=== PATIENT | female | born 1965 | race Caucasian/White ===

== ENCOUNTER → 2017-01-08 | Outpatient (CLI) | payer BC ==
[~2017-01-08] MED LIST: MULTLIQ7 PO
[2017-01-08 18:09] LABS: BASO % 0.5 % (0.0-1.0); EOS # 0.2 K/mm3 (0.0-0.50); EOS % 2.9 % (0.0-3.0); LARGE UNSTAINED CELL # 0.1 K/mm3 (0.0-0.4); LARGE UNSTAINED CELL % 2.3 % (0.0-4.0); LYMPH # 1.9 K/mm3 (1.5-4.5); LYMPH % 30.7 % (24.0-44.0); MEAN CORPUSCULAR HEMOGLOBIN 31.4 pg (27.0-33.0); MEAN CORPUSCULAR HGB CONC 33.7 g/dl (32.0-36.5); MEAN CORPUSCULAR VOLUME 93.2 fl (80.0-96.0); MONO # 0.3 K/mm3 (0.0-0.8); MONO % 5.1 % (0.0-5.0); NEUTROPHILS # 3.4 K/mm3 (1.8-7.7); NEUTROPHILS % 58.5 % (36.0-66.0); PLATELET COUNT, AUTOMATED 318 k/mm3 (150-450); RED CELL DISTRIBUTION WIDTH 12.5 % (11.5-14.5); WHITE BLOOD COUNT 5.8 K/mm3 (4.0-10.0)
[2017-01-08 18:12] LABS: ALBUMIN 4.1 GM/DL (3.2-5.2); ALBUMIN/GLOBULIN RATIO 1.24 (1.00-1.93); ALKALINE PHOSPHATASE 75 U/L (45-117); ALT/SGPT 26 U/L (12-78); ANION GAP 9 MEQ/L (8-16); AST/SGOT 17 U/L (15-37); BILIRUBIN,TOTAL 0.7 MG/DL (0.2-1.0); BLOOD UREA NITROGEN 18 MG/DL (7-18); CALCIUM LEVEL 9.2 MG/DL (8.5-10.1); CARBON DIOXIDE LEVEL 26 MEQ/L (21-32); CHLORIDE LEVEL 108 MEQ/L (98-107); CHOLESTEROL LEVEL 176 MG/DL (<200); CREATININE FOR GFR 0.97 MG/DL (0.55-1.02); FREE T4 1.07 NG/DL (0.76-1.46); GLOMERULAR FILTRATION RATE > 60.0 (>51); GLUCOSE, FASTING 90 MG/DL (70-105); POTASSIUM SERUM 4.1 MEQ/L (3.5-5.1); SODIUM LEVEL 143 MEQ/L (136-145); TOTAL PROTEIN 7.4 GM/DL (6.4-8.2); TRIGLYCERIDES LEVEL 86 MG/DL (<150)
== END ==
LOC: M WUC 10:55
PROVIDERS: ATTEND Nurse Practitioner Family
DX: G47.33 Obstructive sleep apnea (adult) (pediatric) (principal); E66.01 Morbid (severe) obesity due to excess calories; Z13.1 Encounter for screening for diabetes mellitus

== ENCOUNTER 2017-01-12 14:31 | Emergency (ER) | payer BC ==
[~2017-01-12] VITALS: Ht 170.2 cm; Wt 114.3 kg
[2017-01-12 16:00] LABS: BASO % 0.4 % (0.0-1.0); EOS # 0.1 K/mm3 (0.0-0.50); LARGE UNSTAINED CELL # 0.2 K/mm3 (0.0-0.4); LARGE UNSTAINED CELL % 2.5 % (0.0-4.0); LYMPH # 1.9 K/mm3 (1.5-4.5); LYMPH % 24.7 % (24.0-44.0); MEAN CORPUSCULAR HEMOGLOBIN 31.3 pg (27.0-33.0); MEAN CORPUSCULAR HGB CONC 34.3 g/dl (32.0-36.5); MEAN CORPUSCULAR VOLUME 91.3 fl (80.0-96.0); MONO # 0.3 K/mm3 (0.0-0.8); MONO % 4.8 % (0.0-5.0); NEUTROPHILS # 4.6 K/mm3 (1.8-7.7); NEUTROPHILS % 65.5 % (36.0-66.0); PLATELET COUNT, AUTOMATED 291 k/mm3 (150-450); RED CELL DISTRIBUTION WIDTH 12.4 % (11.5-14.5)
--- NOTE | 2017-01-12 16:04 | REP ---
PORTABLE CHEST, SINGLE VIEW: COMPARISON: 06/05/2008 There is no evidence of acute infiltrate. No pleural effusion is seen. The heart is normal in size. The mediastinal silhouette is unremarkable. The visualized osseous structures are intact. IMPRESSION: No acute pulmonary disease. Signed by Mike Jalloh MD 01/14/2017 06:58 P
[2017-01-12 16:22] LABS: ALBUMIN 3.7 GM/DL (3.2-5.2); ALBUMIN/GLOBULIN RATIO 0.93 (1.00-1.93); ALKALINE PHOSPHATASE 78 U/L (45-117); ALT/SGPT 28 U/L (12-78); ANION GAP 7 MEQ/L (8-16); AST/SGOT 27 U/L (15-37); BILIRUBIN,DIRECT < 0.1 MG/DL (0.0-0.2); BILIRUBIN,TOTAL 0.6 MG/DL (0.2-1.0); BLOOD UREA NITROGEN 11 MG/DL (7-18); CALCIUM LEVEL 8.6 MG/DL (8.5-10.1); CARBON DIOXIDE LEVEL 24 MEQ/L (21-32); CHLORIDE LEVEL 108 MEQ/L (98-107); CREATININE FOR GFR 0.91 MG/DL (0.55-1.02); GLOMERULAR FILTRATION RATE > 60.0 (>51); GLUCOSE, FASTING 118 MG/DL (70-105); MAGNESIUM LEVEL 2.3 MG/DL (1.8-2.4); POTASSIUM SERUM 3.8 MEQ/L (3.5-5.1); SODIUM LEVEL 139 MEQ/L (136-145); TOTAL PROTEIN 7.7 GM/DL (6.4-8.2)
[2017-01-12 20:26] VITALS: BP 130/68
--- NOTE | 2017-01-12 20:48 | ECGEPIP ---
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
== END 2017-01-12 21:27 | disposition home or self-care (01) ==
LOC: EDBD 14:31 → M ED 16:06
DX: R00.8 Other abnormalities of heart beat (principal); F41.9 Anxiety disorder, unspecified; E66.9 Obesity, unspecified; G47.33 Obstructive sleep apnea (adult) (pediatric); Z87.891 Personal history of nicotine dependence

== ENCOUNTER 2017-01-19 22:13 | Emergency (ER) | payer BC ==
[~2017-01-19] VITALS: Ht 170.2 cm; Wt 114.3 kg
[2017-01-19] MEDS ORDERED: MULTLIQ7 PO (22:25)
[2017-01-19] MEDS ORDERED: NS 1,000 ML IV ONE (23:30)
[2017-01-19 23:55] LABS: BASO % 0.3 % (0.0-1.0); EOS # 0.2 K/mm3 (0.0-0.50); EOS % 2.4 % (0.0-3.0); LARGE UNSTAINED CELL # 0.2 K/mm3 (0.0-0.4); LARGE UNSTAINED CELL % 2.4 % (0.0-4.0); LYMPH # 2.6 K/mm3 (1.5-4.5); MEAN CORPUSCULAR HEMOGLOBIN 31.8 pg (27.0-33.0); MEAN CORPUSCULAR HGB CONC 34.7 g/dl (32.0-36.5); MEAN CORPUSCULAR VOLUME 91.7 fl (80.0-96.0); MONO # 0.5 K/mm3 (0.0-0.8); MONO % 5.5 % (0.0-5.0); NEUTROPHILS # 5.2 K/mm3 (1.8-7.7); NEUTROPHILS % 61.3 % (36.0-66.0); PLATELET COUNT, AUTOMATED 284 k/mm3 (150-450); RED CELL DISTRIBUTION WIDTH 12.4 % (11.5-14.5); WHITE BLOOD COUNT 8.4 K/mm3 (4.0-10.0)
[2017-01-19] MEDS ORDERED: LORazepam 2 MG/ML VIAL (J2060) IV STA (23:55)
[2017-01-20 00:10] LABS: BLOOD UREA NITROGEN 18 MG/DL (7-18); CARBON DIOXIDE LEVEL 30 MEQ/L (21-32); CREATININE FOR GFR 1.03 MG/DL (0.55-1.02); GLOMERULAR FILTRATION RATE 59.7 (>51); GLUCOSE, FASTING 120 MG/DL (70-105); MAGNESIUM LEVEL 2.1 MG/DL (1.8-2.4)
[2017-01-20 00:30] LABS: ANION GAP 1 MEQ/L (8-16); CHLORIDE LEVEL 110 MEQ/L (98-107); POTASSIUM SERUM 3.6 MEQ/L (3.5-5.1); SODIUM LEVEL 141 MEQ/L (136-145)
[2017-01-20] MEDS ORDERED: ISOVUE-370 76% 100ML VIAL (Q9967) As Ordered ONE (01:16)
--- NOTE | 2017-01-20 01:48 | REP ---
Clinical: Acute chest pain. Shortness of breath and elevated D-dimer levels. Technique: Axial contrast enhanced images from the thoracic inlet to the upper abdomen using 100 ml Isovue 370 intravenous contrast material with coronal and sagittal re-formations. Findings: Satisfactory enhancement of the pulmonary vasculature is achieved and no filling defects are identified to suggest pulmonary embolus. Thoracic aorta is normal caliber without aneurysm or dissection. Heart and pericardium are normal. Bilateral lung rogers are well aerated and clear without acute pulmonary parenchymal consolidation or atelectasis. No nodule or mass lesion. No pleural effusion/reaction. No pneumothorax. No adenopathy. Small hiatal hernia noted at the gastroesophageal junction. Impression: No evidence for pulmonary embolus. No acute pleuroparenchymal or mediastinal process. Small hiatal hernia. Signed by Chidi Chu MD 01/20/2017 01:40 A
--- NOTE | 2017-01-20 02:30 | REPUSA ---
CLINICAL HISTORY: Edema. COMMENTS: Real time sonography with duplex doppler of the extremities bilaterally was performed with attention to the major deep venous structures. Evaluation reveals the common femoral, superficial femoral and popliteal veins bilaterally to be comp letely compressible without intraluminal thrombus. There is normal spontaneous phasic flow and augmen tation in all deep veins. The greater saphenous/common femoral vein junctions are patent bilaterally. IMPRESSION: No evidence of DVT in the lower extremities bilaterally. Thank you for your kind referral of this patient.
[2017-01-20 03:11] VITALS: BP 99/56
--- NOTE | 2017-01-20 07:31 | ECGEPIP ---
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
== END 2017-01-20 03:18 | disposition home or self-care (01) ==
LOC: M ED 23:19
DX: I49.1 Atrial premature depolarization (principal); Z87.891 Personal history of nicotine dependence; Z82.49 Family history of ischemic heart disease and other diseases of the circulatory system
CPT/HCPCS: 71275; 80048; 82550; 82553; 83735; 85025; 85379; 93005; 93041; 93970; 94760; 96361; 96374; 99284; J2060; Q9967

== ENCOUNTER 2017-01-29 06:57 | Observation (INO) | payer BC ==
[~2017-01-29] VITALS: Ht 170.2 cm; Wt 113.2 kg
[2017-01-29] MEDS ORDERED: ASPI81TA85 PO (07:06)
[2017-01-29] MEDS ORDERED: ASPIRIN 81 MG CHEW TABLET PO ONE (07:30)
[2017-01-29 07:44] LABS: BASO % 0.3 % (0.0-1.0); EOS # 0.2 K/mm3 (0.0-0.50); EOS % 2.4 % (0.0-3.0); LARGE UNSTAINED CELL # 0.2 K/mm3 (0.0-0.4); LARGE UNSTAINED CELL % 2.5 % (0.0-4.0); LYMPH # 2.2 K/mm3 (1.5-4.5); LYMPH % 29.4 % (24.0-44.0); MEAN CORPUSCULAR HEMOGLOBIN 31.9 pg (27.0-33.0); MEAN CORPUSCULAR HGB CONC 34.7 g/dl (32.0-36.5); MEAN CORPUSCULAR VOLUME 91.9 fl (80.0-96.0); MONO # 0.4 K/mm3 (0.0-0.8); MONO % 5.4 % (0.0-5.0); NEUTROPHILS # 4.1 K/mm3 (1.8-7.7); PLATELET COUNT, AUTOMATED 285 k/mm3 (150-450); RED CELL DISTRIBUTION WIDTH 12.4 % (11.5-14.5); WHITE BLOOD COUNT 6.9 K/mm3 (4.0-10.0)
[2017-01-29 08:14] LABS: ALBUMIN 3.9 GM/DL (3.2-5.2); ALBUMIN/GLOBULIN RATIO 1.11 (1.00-1.93); ALKALINE PHOSPHATASE 71 U/L (45-117); ALT/SGPT 25 U/L (12-78); ANION GAP 3 MEQ/L (8-16); AST/SGOT 16 U/L (15-37); BILIRUBIN,DIRECT 0.1 MG/DL (0.0-0.2); BILIRUBIN,TOTAL 0.9 MG/DL (0.2-1.0); BLOOD UREA NITROGEN 14 MG/DL (7-18); CALCIUM LEVEL 8.7 MG/DL (8.5-10.1); CARBON DIOXIDE LEVEL 30 MEQ/L (21-32); CHLORIDE LEVEL 105 MEQ/L (98-107); CREATININE FOR GFR 0.98 MG/DL (0.55-1.02); GLOMERULAR FILTRATION RATE > 60.0 (>51); GLUCOSE, FASTING 94 MG/DL (70-105); POTASSIUM SERUM 3.8 MEQ/L (3.5-5.1); SODIUM LEVEL 138 MEQ/L (136-145); TOTAL PROTEIN 7.4 GM/DL (6.4-8.2)
[2017-01-29] MEDS ORDERED: GI COCKTAIL 50ML BTL(HYOSCYAMINE/MAALOX/LIDOCAINE VISCOUS)(1:3:1) PO ONE (08:30)
--- NOTE | 2017-01-29 08:31 | ECGEPIP ---
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
--- NOTE | 2017-01-29 08:49 | REP ---
CHEST, TWO VIEWS: There is no evidence of acute infiltrate. No pleural effusion is seen. The heart is normal in size. The mediastinal silhouette is unremarkable. The visualized osseous structures are intact. There are mild degenerative changes of the spine. IMPRESSION: No acute pulmonary disease. Signed by Mike Jalloh MD 01/29/2017 05:16 P
[2017-01-29 10:42] LABS: MAGNESIUM LEVEL 2.3 MG/DL (1.8-2.4)
--- NOTE | 2017-01-29 11:56 | ECGEPIP ---
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
[2017-01-29] MEDS ORDERED: OMEP40CA2 PO (14:43)
[2017-01-29] MEDS ORDERED: ASPI81TA7 PO (16:12)
[2017-01-29] MEDS ORDERED: ONDANSETRON 4MG/2ML VIAL (J2405) IV PRN (16:15)
[2017-01-29] MEDS ORDERED: NITROGLYCERIN 0.3 MG SUBL TAB SL PRN (16:15)
[2017-01-29] MEDS ORDERED: ACETAMINOPHEN TAB 650MG DOSE (2X325MG) PO PRN (16:15)
[2017-01-29] MEDS ORDERED: GI COCKTAIL 50ML BTL(HYOSCYAMINE/MAALOX/LIDOCAINE VISCOUS)(1:3:1) PO PRN (16:15)
[2017-01-29] MEDS ORDERED: ALPRAZolam 0.5 MG TAB PO PRN (16:15)
--- NOTE | 2017-01-29 16:22 | HPEPDOC ---
General Date of Admission 01/29/17 Primary Care Physician: Esther Conley [facility] Attending Physician: Richard Huertas M.D. Chief Complaint The patient is a 51-year-old female admitted with a reason for visit of Chest Pain. History of Present Illness 51-year-old female with past medical history of morbid obesity, obstructive sleep apnea on CPAP, and anxiety presented to the ER with a chief complaint of chest pain. Of note, the patient has had 3 ER visits, a visit with her primary care physician, and a visit with her english division chair all within the last 2+ weeks since her symptoms began. After reviewing her EKGs, and lab work from here, it does not appear that the patient had any acute ST-T changes or troponin elevation. She denies any history of any cardiac disease, and notes that she had a negative stress test in 2012. At this time, the patient states that she is returning to the ER because she states that she feels intermittent chest pain with associated palpitations. She denies any specific alleviating or aggravating factors. She denies any associated lightheadedness, dizziness, shortness of breath, abdominal pain, or any nausea/vomiting/diarrhea. The patient is scheduled to have an echocardiogram completed on 02/03 and a stress test scheduled for 02/10. However, at this time the patient states that she is still very concerned about the etiology of her chest pain. In the ER, an EKG revealed sinus rhythm with some PVCs. Troponin markers have been within normal limits 2. The patient will be admitted for observation under the [facility] physician group for further evaluation and monitoring on telemetry. Home Medications Scheduled Aspirin (Aspirin) 81 Mg Tab, 81 MG PO DAILY, (Reported) Allergies Coded Allergies: No Known Drug Allergy (Unverified Allergy, Unknown, 11/14/12) Past Medical History Medical History As noted in HPI. Surgical History 1984 GALLBLADDER 2004 ALL FOUR WISDOM TEETH EXTRACTED Family History FATHER: ALIVE 83 YRS, HTN, H/O B-CELL LYMPHOMA MOTHER: ALIVE 81 YRS, LIPIDS, OCD/ANXIETY. MITRAL VALVE REPAIR: 09/2014 SIBLINGS: ALIVE, BROTHER (1) - NO KNOWN MEDICAL PROBLEMS SISTER (1) - HTN SON(S): ALIVE 32 YRS, NO KNOWN MEDICAL PROBLEMS DAUGHTER(S): ALIVE, DAUGHTERS (2) - NO KNOWN MEDICAL PROBLEMS Social History * Smoker: former Smoker Alcohol: Denies Drugs: denies Review of Symptoms Other systems 10 point review of systems negative unless otherwise specified in HPI. Physical Examination General Exam: Positive: Alert, Cooperative, No Acute Distress ENT Exam: Positive: Atraumatic, Mucous membr. moist/pink Neck Exam: Negative: JVD Chest Exam: Positive: Clear to auscultation, Normal air movement, Other ( reproducible chest pain upon extension of arms and palpation of muscles of the left chest wall and shoulder region.) Heart Exam: Positive: Rate Normal, Regular Rhythm, Normal S1, Normal S2 Telemetry: Positive: Sinus, PVCs Abdomen Exam: Positive: Soft, Negative: Tenderness Extremity Exam: Negative: Tenderness, Swelling Psych Exam: Positive: Oriented x 3 Vital Signs Vital Signs Date Time Temp Pulse Resp B/P (MAP) Pulse Ox O2 Delivery O2 Flow Rate FiO2 01/29/17 15:35 74 94 01/29/17 14:54 154/86 (108) 01/29/17 11:30 98.9 16 01/29/17 09:25 Room Air Laboratory Data Labs 24H Laboratory Tests 2 01/29/17 07:30: White Blood Count 6.9, Red Blood Count 4.27, Hemoglobin 13.6, Hematocrit 39.2, Mean Corpuscular Volume 91.9, Mean Corpuscular Hemoglobin 31.9, Mean Corpuscular Hemoglobin Concent 34.7, Red Cell Distribution Width 12.4, Platelet Count 285, Neutrophils (%) (Auto) 60.0, Lymphocytes (%) (Auto) 29.4, Monocytes ( %) (Auto) 5.4H, Eosinophils (%) (Auto) 2.4, Basophils (%) (Auto) 0.3, Neutrophils # (Auto) 4.1, Lymphocytes # (Auto) 2.2, Monocytes # (Auto) 0.4, Eosinophils # (Auto) 0.2, Basophils # (Auto) 0.0, Large Unclassified Cells % 2.5 , Large Unclassified Cells # 0.2, Anion Gap 3L, Glomerular Filtration Rate > 60.0, Calcium Level 8.7, Magnesium Level 2.3, Aspartate Amino Transf (AST/SGOT) 16, Alanine Aminotransferase (ALT/SGPT) 25, Alkaline Phosphatase 71, Total Bilirubin 0.9, Direct Bilirubin 0.1, Total Creatine Kinase 70, Creatine Kinase MB 1.0, Creatine Kinase MB Relative Index 1.42, Troponin I < 0.02, B-Type Natriuretic Peptide 16.3, Total Protein 7.4, Albumin 3.9, Albumin/Globulin Ratio 1.11, Lipase 150 01/29/17 13:26: Total Creatine Kinase 74, Creatine Kinase MB 1.0, Creatine Kinase MB Relative Index 1.35, Troponin I < 0.02 CBC/BMP Laboratory Tests 01/29/17 07:30 Red Blood Count 4.27, Mean Corpuscular Volume 91.9, Mean Corpuscular Hemoglobin 31.9, Mean Corpuscular Hemoglobin Concent 34.7, Red Cell Distribution Width 12.4 , Neutrophils (%) (Auto) 60.0, Lymphocytes (%) (Auto) 29.4, Monocytes (%) (Auto ) 5.4 H, Eosinophils (%) (Auto) 2.4, Basophils (%) (Auto) 0.3, Neutrophils # ( Auto) 4.1, Lymphocytes # (Auto) 2.2, Monocytes # (Auto) 0.4, Eosinophils # (Auto ) 0.2, Basophils # (Auto) 0.0 Plan / VTE VTE Prophylaxis Ordered?: Yes Plan Plan Chest Pain R/O ACS We will admit for observation in PCU EKG with no acute ST-T changes Troponin negative x 2, will serially trend Already given a dose of ASA in ER, will order for SL Nitro prn Will continue to monitor on telemetry Obstructive sleep apnea on CPAP Patient's will bring the patient's CPAP to the hospital for use tonight Anxiety Xanax when necessary Morbid obesity Complicating medical care DVT prophylaxis Lovenox subcutaneously The patient will be admitted under the service of Dr. Huertas. IRLANDA MOREAU MD Jan 29, 2017 16:22
[2017-01-29] MEDS ORDERED: KETOROLAC 30 MG/ML VIAL (J1885) IV ONE (17:00)
[2017-01-29 17:18] VITALS: BP 156/97
--- NOTE | 2017-01-29 19:40 | ECGEPIP ---
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
[2017-01-29 20:00] VITALS: BP 136/89
[2017-01-29 23:52] VITALS: BP 115/63
[2017-01-30 04:00] VITALS: BP 111/58
[2017-01-30 05:32] LABS: MEAN CORPUSCULAR HEMOGLOBIN 31.4 pg (27.0-33.0); MEAN CORPUSCULAR HGB CONC 33.9 g/dl (32.0-36.5); MEAN CORPUSCULAR VOLUME 92.5 fl (80.0-96.0); RED CELL DISTRIBUTION WIDTH 12.5 % (11.5-14.5); WHITE BLOOD COUNT 7.4 K/mm3 (4.0-10.0)
[2017-01-30 06:46] LABS: ANION GAP 6 MEQ/L (8-16); BLOOD UREA NITROGEN 18 MG/DL (7-18); CALCIUM LEVEL 8.6 MG/DL (8.5-10.1); CARBON DIOXIDE LEVEL 27 MEQ/L (21-32); CHLORIDE LEVEL 105 MEQ/L (98-107); CREATININE FOR GFR 0.92 MG/DL (0.55-1.02); GLOMERULAR FILTRATION RATE > 60.0 (>51); GLUCOSE, FASTING 99 MG/DL (70-105); POTASSIUM SERUM 3.9 MEQ/L (3.5-5.1); SODIUM LEVEL 138 MEQ/L (136-145)
[2017-01-30 08:00] VITALS: BP 123/76
[2017-01-30] MEDS ORDERED: ENOXAPARIN 40 MG/0.4 ML SYRINGE (J1650) SC SCH (09:00)
[2017-01-30 12:00] VITALS: BP 164/74
[2017-01-30] MEDS ORDERED: ALPR0.5T3 PO (15:51)
--- NOTE | 2017-01-30 20:56 | IPN ---
DATE: 01/30/2017 SUBJECTIVE: The patient is seen today on progressive care unit (PCU). She was admitted yesterday from what I understand for chest pain and lightheadedness as well as palpitations. She has been experiencing palpitations for the last several weeks which may or may not have been coincidence with taking a nutritional supplement for weight loss. She describes herself in fairly high-stress job, although denies any significant issues with chest pains or palpitations prior to January 12. She has had least one emergency room (ER) visit, least one office visit and has had one cardiology visit. She is scheduled to have an echocardiogram on 02/03 and a stress test on 02/10. She is not having any heartburn or indigestion. She did describe some additional palpitations after she had eaten her breakfast. She is getting some Lovenox right now, some alprazolam as needed, and received a gastrointestinal (GI) cocktail. OBJECTIVE: VITAL SIGNS: On examination her temperature is 97.8, pulse of 65 with occasional skips, blood pressure 123/76, pulse 18 and regular, O2 saturation 95% on room air. GENERAL: She is alert, pleasant, cooperative, not in any distress. HEENT: Her eyes are clear. NECK: Without any masses, tenderness or adenopathy. There are no carotid bruits. LUNGS: Clear. HEART: Has regular rhythm with occasional skip. No murmur, click or gallop. ABDOMEN: Soft, nontender without any masses or organomegaly. Bowel sounds are active. LABORATORY DATA: Labs from today showed a hemoglobin of 12.8, WBC 7400. She has had four sets of cardiac enzymes that have been completely. normal BNP is 16.3. Potassium 3.9, BUN 18, creatinine 0.92, glucose 99. Lipase done yesterday was normal. ASSESSMENT: 1. Chest pain and palpitations. 2. Overweight. 3. Relatively frequent premature ventricular contractions (PVCs). PLAN: Reassured the patient that we have not seen anything ominous with her current situation, that her labs and EKGs are unrevealing. I think it would be reasonable prior to her going home to do an echocardiogram. I think it would be reasonable for her to have a prescription for anxiety. Continue on aspirin. I would not put her on any beta blockers or anything like that at this time. We will review her echocardiogram before sending her home, but she looks so good today and everything has been normal enough that I think that is a reasonable way to go. MILY
--- NOTE | 2017-01-31 07:15 | ECHO ---
DATE OF PROCEDURE: 01/30/2017 DATE OF : 1965 AGE: 51 GENDER: Female HEIGHT: 67 inches WEIGHT: 249 pounds BODY SURFACE AREA: 2.22 meters squared INPATIENT: Progressive care unit (PCU), Room 3228 REFERRING PHYSICIAN: Dr. Huertas INDICATION: Chest pain, PVCs. MEASUREMENTS 2D measurements: RV: 3.9 cm LV: 4.9 cm Septum: 1.1 cm Posterior wall: 1.1 cm Aortic root: 3.1 cm LA: 4.2 cm LVEF: 70%. Doppler measurements AV: 1.5 meters per second LVOT: 0.9 meters per second MV-E: 100, A: 130, EA ratio: 0.8 E prime: 8 A prime: 12 E/E prime ratio: 12.5 PV: 0.9 m/s Pulmonary artery acceleration time: 180 milliseconds IVC: 2.0 cm Normal sinus rhythm with frequent episodes of ventricular bigeminy. Somewhat technically difficult study in light of the patient's body habitus. Two-dimensional, M-mode, pulsed, continuous wave and color flow Doppler study as well as tissue Doppler studies were performed. CONCLUSIONS: Normal left ventricular size, wall thickness and hyperkinetic wall motion. Borderline left atrial enlargement with Doppler sign of an impairment of LV diastolic function but currently normal estimated mean left atrial pressure. Normal right heart chamber sizes and wall motion with normal pulmonary artery acceleration time against pulmonary hypertension. Normal IVC size and collapse against an elevated central venous pressure. Normal appearing valvular structures with mild mitral insufficiency. No apparent intracardiac mass or pericardial effusion.
--- NOTE | 2017-01-31 12:49 | DSES ---
DATE OF ADMISSION: 01/29/2017 DATE OF DISCHARGE: 01/30/2017 DIAGNOSES: 1. Chest pain, not ischemic. 2. Premature ventricular contractions. 3. Mild mitral regurgitation. 4. Obesity. BRIEF HISTORY AND PHYSICAL: This is a 51-year-old woman who started having palpitations about 2-1/2 weeks ago. They had not been responsive to discontinuation of vitamin supplements and reduction in caffeine. She had three ER visits as well as the cardiology and primary care visit. She complained of intermittent chest pain, palpitations and a kind of funny feeling in her head or chest, not specifically any kind of lightheadedness. The only medication that she was taking at home was 81 mg aspirin. Her physical examination showed that she was pleasant, overweight, not in any distress. Her lungs were clear. Heart had a regular rhythm with skips corresponding to premature ventricular contractions. There is no edema. No jugular venous distension. LABORATORY DATA: She had several sets of cardiac enzymes that were negative. Her magnesium was 2.3. Liver functions were normal. BUN was 14 and 18. Creatinine was 0.98 and 0.92. Potassium was 3.9 and 3.8. Lipase was normal at 150. Chest x-ray was clear with no acute pulmonary disease, normal heart size. COURSE IN THE FACILITY: Resident was admitted to progressive care unit (PCU), had cardiac monitoring and had rule out myocardial infarction (RI), enzymes and EKGs done. The EKGs were unchanged. She did have a normal sinus rhythm with premature ventricular contractions (PVCs) that were either bigeminal, less frequent or nonexistent. She has not had any shortness of breath or lightheadedness. When seen the following morning, she was quite comfortable. She had PVCs intermittently. Lungs were clear. Heart had a regular rhythm with the occasional PVCs. Abdomen was soft and nontender. There was no edema. An echocardiogram was done before discharge, which did not have a formal report but was said to show some mild mitral regurgitation. The patient was discharged to her home, felt to be safely ruled out for ischemic cardiac disease as well as cardiomyopathy. She was to stay away from vitamins and supplements. She could have one cup of coffee per day. Continue aspirin 81 mg daily. We did provide her with a prescription for alprazolam 0.5 mg that she could take twice a day as needed for anxiety. We called in a prescription for #10 and no refill for her. I felt it best patient be followed up in the office in about 5 days and that she contact the production sanitizer's office on 02/01/2017 and let them know that she had already had her echocardiogram in the hospital. She is scheduled for a stress test on 02/10/2017. In terms of activity, advised not do any heavy exertion. cc: Dr. Silver MINOR
== END 2017-01-30 17:15 | disposition home or self-care (01) ==
LOC: M ED 07:45 → M ED INP 16:08 → M PCU 17:14
PROVIDERS: ADMIT Internal Medicine; ATTEND Family Medicine
DX: R07.89 Other chest pain (principal); I49.3 Ventricular premature depolarization; I34.0 Nonrheumatic mitral (valve) insufficiency; E66.01 Morbid (severe) obesity due to excess calories; R00.2 Palpitations; F41.9 Anxiety disorder, unspecified; G47.33 Obstructive sleep apnea (adult) (pediatric); Z79.82 Long term (current) use of aspirin; Z87.891 Personal history of nicotine dependence
CPT/HCPCS: 36415; 71020; 80048; 80076; 82550; 82553; 83690; 83735; 83880; 85025; 85027; 93005; 94760; 96372; 96374; 99285; J1650; J1885

== ENCOUNTER → 2017-07-28 | Outpatient (CLI) | payer BC ==
[~2017-07-28] MED LIST changes: +ALPR0.5T3 PO; +ASPI1TAB15 PO; +ASPI81TA85 PO; +OMEP40CA2 PO
[2017-07-28 12:14] LABS: BASO % 0.6 % (0.0-1.0); EOS # 0.1 10^3/uL (0.0-0.50); EOS % 1.7 % (0.0-3.0); IMMATURE GRANULOCYTE % 0.3 % (0-0); LYMPH # 1.8 10^3/uL (1.5-4.5); LYMPH % 27.2 % (24.0-44.0); MEAN CORPUSCULAR HEMOGLOBIN 30.6 pg (27.0-33.0); MEAN CORPUSCULAR HGB CONC 33.4 g/dl (32.0-36.5); MEAN CORPUSCULAR VOLUME 91.7 fl (80.0-96.0); MONO # 0.5 10^3/uL (0.0-0.8); MONO % 6.8 % (0.0-5.0); NEUTROPHILS # 4.2 10^3/uL (1.8-7.7); NEUTROPHILS % 63.4 % (36.0-66.0); PLATELET COUNT, AUTOMATED 306 10^3/uL (150-450); RED CELL DISTRIBUTION WIDTH 12.5 % (11.5-14.5); WHITE BLOOD COUNT 6.6 10^3/uL (4.0-10.0)
[2017-07-28 12:39] LABS: ALBUMIN/GLOBULIN RATIO 1.14 (1.00-1.93); ALKALINE PHOSPHATASE 75 U/L (45-117); ALT/SGPT 27 U/L (12-78); ANION GAP 10 MEQ/L (8-16); AST/SGOT 19 U/L (7-37); BILIRUBIN,TOTAL 0.8 MG/DL (0.2-1.0); BLOOD UREA NITROGEN 16 MG/DL (7-18); CALCIUM LEVEL 8.9 MG/DL (8.5-10.1); CARBON DIOXIDE LEVEL 25 MEQ/L (21-32); CHLORIDE LEVEL 107 MEQ/L (98-107); CHOLESTEROL LEVEL 172 MG/DL (<200); CREATININE FOR GFR 0.89 MG/DL (0.55-1.02); FREE T4 1.07 NG/DL (0.76-1.46); GLOMERULAR FILTRATION RATE > 60.0 (>51); GLUCOSE, FASTING 91 MG/DL (70-105); POTASSIUM SERUM 4.2 MEQ/L (3.5-5.1); SODIUM LEVEL 142 MEQ/L (136-145); TOTAL PROTEIN 7.5 GM/DL (6.4-8.2); TRIGLYCERIDES LEVEL 97 MG/DL (<150)
== END ==
LOC: M WUC 09:35
PROVIDERS: ATTEND Nurse Practitioner Family
DX: G47.33 Obstructive sleep apnea (adult) (pediatric) (principal); E66.01 Morbid (severe) obesity due to excess calories

== ENCOUNTER → 2017-09-30 | Outpatient (CLI) | payer OTHER | LOC: M WHC 10:28 | DX: Z12.31 Encounter for screening mammogram for malignant neoplasm of breast (principal) | CPT/HCPCS: 77067 ==

== ENCOUNTER → 2017-09-30 | Outpatient (REF) | payer OTHER ==
[2017-10-02 14:10] LABS: HPV HYBRID CAPTURE II Negative (Negative)
== END ==
LOC: M SFHCWAGY 11:02
DX: Z11.51 Encounter for screening for human papillomavirus (HPV) (principal)
CPT/HCPCS: G0123

== ENCOUNTER → 2018-07-02 | Outpatient (REF) | payer OTHER | LOC: M SFHCLERA 18:16 | DX: J02.9 Acute pharyngitis, unspecified (principal) ==

== ENCOUNTER → 2018-10-10 | Outpatient (CLI) | payer OTHER ==
--- NOTE | 2018-10-11 08:27 | REPMRS ---
Patient History The patient states she had a clinical breast exam in 10/04 Patient is postmenopausal and has history of skin cancer at age 48. No known family history of cancer. Digital Woman Screen Mammo: October 10, 2018 - Exam #: [id number] Bilateral CC and MLO view(s) were taken. Technologist: Maddie Driscoll, Technologist Prior study comparison: September 30, 2017, digital woman screen mammo performed at [facility] to [facility]. February 14, 2014, digital woman screen mammo performed at [facility] to [facility]. June 24, 2009, bilateral bilat screen digital mammo performed at [facility]. FINDINGS: There are scattered fibroglandular densities. There is a moderate amount of residual fibroglandular tissue which is fairly symmetric. There is no interval development of dominant mass, architectural distortion, or clustered microcalcification typical of malignancy. There has been no change in the appearance of the mammogram from the prior studies. 3-D tomosynthesis shows no additional findings. Assessment: BI-RADS/ACR category 1 mammogram. Negative Mammogram. Recommendation Routine screening mammogram of both breasts in 1 year (for women over age 40). This patient's Lifetime Breast Cancer RIsk is estimated at 8.0 %. This mammogram was interpreted with the aid of an FDA-approved computer-aided dectection system. Electronically Signed By: Antonio Handy MD 10/11/18 0827
== END ==
LOC: M WHC 10:26
PROVIDERS: ATTEND Nurse Practitioner Women's Health
DX: Z12.31 Encounter for screening mammogram for malignant neoplasm of breast (principal)

== ENCOUNTER 2018-12-23 08:10 | Day surgery (SDC) | payer OTHER ==
[~2018-12-23] VITALS: Ht 170.2 cm; Wt 115.7 kg
[~2018-12-23 08:10] MED LIST changes: +LIDOCAINE 2% INJ 100 MG/5 ML SDV (FOR ANES.) As Ordered ONE; +METO1TAB32 PO; +NS 1,000 ML IV ONE
[2018-12-23] MEDS ORDERED: PROPOFOL 200 MG/20 ML VIAL As Ordered ONE ×2 (08:14→09:16)
--- NOTE | 2018-12-23 09:53 | ROOR ---
Patient Name: Octavia Jarvis Procedure Date: 12/23/2018 9:07 AM Date of : 1965 Age: 53 [facility] Gender: Female Note Status: Finalized Procedure: Colonoscopy Indications: Screening for colorectal malignant neoplasm Providers: Donavan Adhikari MD Referring MD: Esther Conley NP Requesting Provider: Medicines: Monitored Anesthesia Care Complications: No immediate complications. Procedure: Pre-Anesthesia Assessment: - Prior to the procedure, a History and Physical was performed, and patient medications and allergies were reviewed. The patient is competent. The risks and benefits of the procedure and the sedation options and risks were discussed with the patient. All questions were answered and informed consent was obtained. Patient identification and proposed procedure were verified by the physician, the nurse and the anesthesiologist in the procedure room. Mental Status Examination: alert and oriented. Airway Examination: normal oropharyngeal airway and neck mobility. Respiratory Examination: clear to auscultation. CV Examination: normal. Prophylactic Antibiotics: The patient does not require prophylactic antibiotics. Prior Anticoagulants: The patient has taken no previous anticoagulant or antiplatelet agents. ASA Grade Assessment: II - A patient with mild systemic disease. After reviewing the risks and benefits, the patient was deemed in satisfactory condition to undergo the procedure. The anesthesia plan was to use monitored anesthesia care (MAC). Immediately prior to administration of medications, the patient was re-assessed for adequacy to receive sedatives. The heart rate, respiratory rate, oxygen saturations, blood pressure, adequacy of pulmonary ventilation, and response to care were monitored throughout the procedure. The physical status of the patient was re-assessed after the procedure. The Colonoscope was introduced through the anus and advanced to the terminal ileum, with identification of the appendiceal orifice and IC valve. The patient tolerated the procedure well. The colonoscopy was performed without difficulty. The quality of the bowel preparation was good. The terminal ileum, ileocecal valve, appendiceal orifice, and rectum were photographed. Scope insertion time was 3 minutes. Scope withdrawal time was 9 minutes. The total duration of the procedure was 12 minutes. Findings: The perianal and digital rectal examinations were normal. The terminal ileum appeared normal. A few small-mouthed diverticula were found in the sigmoid colon. Non-bleeding external and internal hemorrhoids were found during retroflexion. The hemorrhoids were small. No other significant abnormalities were identified in a careful examination of the remainder of the colon. Impression: - The examined portion of the ileum was normal. - Diverticulosis in the sigmoid colon. - Non-bleeding external and internal hemorrhoids. - No specimens collected. Recommendation: - Patient has a contact number available for emergencies. The signs and symptoms of potential delayed complications were discussed with the patient. Return to normal activities tomorrow. Written discharge instructions were provided to the patient. - High fiber diet. - Continue present medications. - Repeat colonoscopy in 10 years for screening purposes. - Return to GI clinic in 10 years. - Return to primary care physician. Donavan Adhikari MD Donavan Adhikari MD 12/23/2018 9:52:56 AM Electronically signed by Donavan Adhikari MD Number of Addenda: 0 Note Initiated On: 12/23/2018 9:07 AM Estimated Blood Loss: Estimated blood loss: none.
[2018-12-23 10:15] VITALS: BP 144/93
== END 2018-12-23 10:20 | disposition home or self-care (01) ==
LOC: M OPP 08:10
PROVIDERS: ATTEND Internal Medicine Gastroenterology
DX: K57.30 Diverticulosis of large intestine without perforation or abscess without bleeding (principal); K64.8 Other hemorrhoids; Z12.11 Encounter for screening for malignant neoplasm of colon

== ENCOUNTER → 2019-06-12 | Outpatient (CLI) | payer OTHER ==
[~2019-06-12] MED LIST changes: -LIDOCAINE 2% INJ 100 MG/5 ML SDV (FOR ANES.) As Ordered ONE; -NS 1,000 ML IV ONE; -OMEP40CA2 PO; +OMEP40CA97 PO
[2019-06-12 12:17] LABS: BASO % 0.6 % (0.0-1.0); EOS # 0.2 10^3/uL (0.0-0.5); EOS % 2.6 % (0.0-3.0); HEMATOCRIT 40.4 % (36.0-47.0); HEMOGLOBIN 13.6 g/dl (12.0-15.5); LYMPH % 29.9 % (24.0-44.0); MEAN CORPUSCULAR HEMOGLOBIN 31.6 pg (27.0-33.0); MEAN CORPUSCULAR HGB CONC 33.7 g/dl (32.0-36.5); MEAN CORPUSCULAR VOLUME 93.7 fl (80.0-96.0); MONO # 0.4 10^3/uL (0.0-0.8); MONO % 6.4 % (0.0-5.0); NEUTROPHILS # 3.9 10^3/uL (1.5-8.5); NEUTROPHILS % 60.2 % (36.0-66.0); PLATELET COUNT, AUTOMATED 278 10^3/uL (150-450); RED BLOOD COUNT 4.31 10^6/uL (4.00-5.40); WHITE BLOOD COUNT 6.5 10^3/uL (4.0-10.0)
[2019-06-12 12:37] LABS: HEMOGLOBIN A1c 5.9 %
[2019-06-12 12:49] LABS: ALBUMIN 3.7 GM/DL (3.2-5.2); ALT/SGPT 30 U/L (12-78); BILIRUBIN,TOTAL 0.8 MG/DL (0.2-1.0); BLOOD UREA NITROGEN 17 MG/DL (7-18); CALCIUM LEVEL 8.9 MG/DL (8.5-10.1); CARBON DIOXIDE LEVEL 25 MEQ/L (21-32); CHLORIDE LEVEL 110 MEQ/L (98-107); CHOLESTEROL LEVEL 173 MG/DL (<200); CHOLESTEROL RISK RATIO 3.203 (<5); CREATININE FOR GFR 0.84 MG/DL (0.55-1.30); GLOMERULAR FILTRATION RATE > 60.0 (>51); GLUCOSE, FASTING 84 MG/DL (70-100); HDL CHOLESTEROL 54 MG/DL (>40); LDL CHOLESTEROL 105 MG/DL (<100); NON-HDL-C 119 MG/DL; POTASSIUM SERUM 4.1 MEQ/L (3.5-5.1); SODIUM LEVEL 140 MEQ/L (136-145); TOTAL PROTEIN 7.4 GM/DL (6.4-8.2); TRIGLYCERIDES LEVEL 69 MG/DL (<150)
== END ==
LOC: M LAB 11:34
PROVIDERS: ATTEND Nurse Practitioner Family
DX: Z13.1 Encounter for screening for diabetes mellitus (principal); E66.01 Morbid (severe) obesity due to excess calories; G47.33 Obstructive sleep apnea (adult) (pediatric); Z79.899 Other long term (current) drug therapy

== ENCOUNTER → 2019-06-12 | Outpatient (CLI) | payer OTHER ==
[2019-06-12 12:56] LABS: CHOLESTEROL RISK RATIO 3.176 (<5)
== END ==
LOC: M LAB 11:38
PROVIDERS: ATTEND Physician Assistant
DX: I49.3 Ventricular premature depolarization (principal); I10 Essential (primary) hypertension

== ENCOUNTER → 2019-10-11 | Outpatient (CLI) | payer OTHER ==
--- NOTE | 2019-10-11 15:08 | REPMRS ---
Patient History The patient states she has not had a clinical breast exam in over a year. No known family history of cancer. Digital Woman Screen Mammo: October 11, 2019 - Exam #: [id number] Bilateral CC and MLO view(s) were taken. Technologist: Lorraine Cabrera, Technologist Prior study comparison: October 10, 2018, bilateral digital woman screen mammo performed at [facility]. September 30, 2017, digital woman screen mammo performed at [facility]. February 14, 2014, digital woman screen mammo performed at [facility]. FINDINGS: There are scattered fibroglandular densities. There has been no change in the appearance of the mammogram from the prior studies. There is a mild amount of scattered fibroglandular density which is fairly symmetric. There is no interval development of dominant mass, architectural distortion, or grouped microcalcification suggestive of malignancy. 3-D tomosynthesis shows no additional findings. Assessment: BI-RADS/ACR category 1 mammogram. Negative Mammogram. Recommendation Routine screening mammogram of both breasts in 1 year (for women over age 40). This patient's Lifetime Breast Cancer Risk is estimated at 7.9 %. This mammogram was interpreted with the aid of an FDA-approved computer-aided dectection system. Electronically Signed By: Antonio Handy MD 10/11/19 [id number]
== END ==
LOC: M WHC 11:37
PROVIDERS: ATTEND Nurse Practitioner Women's Health
DX: Z12.31 Encounter for screening mammogram for malignant neoplasm of breast (principal)

== ENCOUNTER → 2019-10-19 | Outpatient (REF) | payer OTHER | LOC: M SFHCWAGY 13:33 | PROVIDERS: ATTEND Nurse Practitioner Women's Health | DX: Z12.4 Encounter for screening for malignant neoplasm of cervix (principal) ==

== ENCOUNTER → 2019-10-24 | Outpatient (CLI) | payer OTHER ==
--- NOTE | 2019-10-25 08:37 | REP ---
Clinical: Pelvic pain. Technique: Transabdominal pelvic ultrasound followed by transvaginal examination for better evaluation of the endometrium and adnexa with color Doppler evaluation of the ovaries. Findings: Bladder is normal and measures approximately 12.7 x 6.6 x 8.5 cm. Retroverted uterus measures 8.2 x 4 point by 5.0 cm. Endometrial complex measures 4.9 mm thickness. Suggestions for 1.4 x 1.6 x 0.7 cm anterior intramural fibroid identified. The bilateral ovaries are normal in appearance and vascularity without torsion. Right ovary measures 1.6 x 0.9 x 1.3 cm (RI 0.61). Left ovary measures 2.0 x 0.6 x 0.8 cm (RI 0.49). No pelvic fluid or adnexal mass lesion. Impression: 1. Retroverted uterus with possible small anterior intramural fibroid.
== END ==
LOC: M WHC 11:06
PROVIDERS: ATTEND Nurse Practitioner Women's Health
DX: R10.2 Pelvic and perineal pain (principal)

== ENCOUNTER → 2020-05-01 | Outpatient (CLI) | payer OTHER ==
[~2020-05-01] MED LIST changes: +ASPI-546 PO; -ASPI1TAB15 PO; -ASPI81TA85 PO; +ASPI81TA86 PO
--- NOTE | 2020-05-14 16:29 | REP ---
RIGHT HIP SERIES CLINICAL: Pain. TECHNIQUE: AP and frog lateral views of the right hip. COMPARISON: 02/19/2016. FINDINGS: Moderate arthritic changes are again noted, which have mildly increased from prior examination. Findings include increased sclerosis along the acetabulum with marginal spurring, as well as spurring-osteophyte formation along the femoral head. Associated joint space narrowing is noted. No obvious loose bodies identified. No evidence for acute fracture or dislocation. IMPRESSION: Moderate arthritic changes to the right hip mildly increased from prior examination. MTDD
== END ==
LOC: M CLY 14:39
PROVIDERS: ATTEND Nurse Practitioner Family
DX: M16.11 Unilateral primary osteoarthritis, right hip (principal)

== ENCOUNTER → 2020-10-14 | Outpatient (CLI) | payer OTHER ==
--- NOTE | 2020-10-14 13:48 | REPMRS ---
Patient History The patient states she had a clinical breast exam in October 2020. No known family history of cancer. 3D TOMOSYNTHESIS WAS PERFORMED. [facility] lifetime risk for breast cancer is 7.7%. Volpara breast density b. Digital Woman Screen Mammo: October 14, 2020 - Exam #: [id number] Bilateral CC and MLO view(s) were taken. Technologist: Sita Mallory, Technologist Prior study comparison: October 11, 2019, bilateral digital woman screen mammo performed at [facility]. October 10, 2018, bilateral digital woman screen mammo performed at [facility]. FINDINGS: The breast tissue is heterogeneously dense. This may lower the sensitivity of mammography. There has been no change in the appearance of the mammogram from the prior studies. There is a moderate amount of residual fibroglandular tissue which is fairly symmetric. There is no interval development of dominant mass, areas of architectural distortion, or clustered microcalcification typical of malignancy. Assessment: BI-RADS/ACR category 1 mammogram. Negative Mammogram. Recommendation Routine screening mammogram in 1 year (for women over age 40). This mammogram was interpreted with the aid of an FDA-approved computer-aided dectection system. Electronically Signed By: Mike Jalloh MD 10/14/20 [id number]
== END ==
LOC: M WHC 11:30
PROVIDERS: ATTEND Nurse Practitioner Women's Health
DX: Z12.31 Encounter for screening mammogram for malignant neoplasm of breast (principal)

== ENCOUNTER → 2020-12-04 | Outpatient (REF) | payer OTHER ==
[2020-12-05 11:57] LABS: BASO # 0.1 10^3/uL (0.0-0.2); EOS # 0.1 10^3/uL (0.0-0.5); EOS % 1.8 % (0.0-3.0); HEMATOCRIT 43.2 % (36.0-47.0); HEMOGLOBIN 14.1 g/dl (12.0-15.5); LYMPH % 27.4 % (24.0-44.0); MEAN CORPUSCULAR HGB CONC 32.6 g/dl (32.0-36.5); MEAN CORPUSCULAR VOLUME 94.9 fl (80.0-96.0); MONO # 0.6 10^3/uL (0.0-0.8); MONO % 8.2 % (2.0-8.0); NEUTROPHILS # 4.3 10^3/uL (1.5-8.5); NEUTROPHILS % 60.8 % (36.0-66.0); PLATELET COUNT, AUTOMATED 314 10^3/uL (150-450); RED BLOOD COUNT 4.55 10^6/uL (4.00-5.40); WHITE BLOOD COUNT 7.1 10^3/uL (4.0-10.0)
[2020-12-05 12:22] LABS: HEMOGLOBIN A1c 5.4 %
[2020-12-05 12:54] LABS: ALBUMIN 4.1 GM/DL (3.2-5.2); ALT/SGPT 23 U/L (12-78); BILIRUBIN,TOTAL 0.8 MG/DL (0.2-1.0); BLOOD UREA NITROGEN 18 MG/DL (7-18); CALCIUM LEVEL 9.8 MG/DL (8.5-10.1); CARBON DIOXIDE LEVEL 31 MEQ/L (21-32); CHLORIDE LEVEL 107 MEQ/L (98-107); CHOLESTEROL LEVEL 200 MG/DL (<200); CHOLESTEROL RISK RATIO 4.166 (<5); CREATININE FOR GFR 0.93 MG/DL (0.55-1.30); FREE T4 0.93 NG/DL (0.76-1.46); GLOMERULAR FILTRATION RATE > 60.0 (>51); GLUCOSE, FASTING 100 MG/DL (70-100); HDL CHOLESTEROL 48 MG/DL (>40); LDL CHOLESTEROL 128 MG/DL (<100); NON-HDL-C 152 MG/DL; POTASSIUM SERUM 5.7 MEQ/L (3.5-5.1); SODIUM LEVEL 140 MEQ/L (136-145); TOTAL PROTEIN 7.5 GM/DL (6.4-8.2); TRIGLYCERIDES LEVEL 122 MG/DL (<150)
== END ==
LOC: M SFHCCLAY 11:36
PROVIDERS: ATTEND Nurse Practitioner Family
DX: G47.33 Obstructive sleep apnea (adult) (pediatric) (principal); E66.01 Morbid (severe) obesity due to excess calories; M25.551 Pain in right hip; R73.03 Prediabetes; R00.2 Palpitations; F40.243 Fear of flying

== ENCOUNTER → 2021-01-09 | Outpatient (CLI) | payer OTHER ==
[~2021-01-09] MED LIST changes: +OMEP40CA4 PO; -OMEP40CA97 PO
== END ==
LOC: M SOG 15:23
PROVIDERS: ATTEND Orthopaedic Surgery Adult Reconstructive Orthopaedic Surgery
DX: M16.0 Bilateral primary osteoarthritis of hip (principal)

== ENCOUNTER → 2021-02-20 | Outpatient (CLI) | payer OTHER ==
[~2021-02-20] MED LIST changes: +BUPIVACAINE HCL 0.5% 10ML VIAL As Ordered ONE; +ISOVUE-300 61% 50ML VIAL As Ordered ONE; +methylPREDNISolone 80MG/ML SUSP 1ML VIAL (J1040) As Ordered ONE
--- NOTE | 2021-02-20 17:04 | REP ---
INDICATION: RIGHT HIP INJ DYSPLASIA. COMPARISON: None. TECHNIQUE: The procedure was performed under the direct supervision of Dr. Jalloh. The benefits and risks including but not limited to pain infection and bleeding and anaphylaxis were explained to the patient and informed consent was obtained. The right femoral neck was localized using fluoroscopic guidance. The skin was prepped and draped in a sterile fashion. 1% lidocaine was used as a local anesthetic. Using fluoroscopic guidance, and last image hold technology, a 22-gauge spinal needle was inserted and advanced to the femoral neck. 0.5 ml of Isovue-300 was injected to verify placement. Four ml of a solution containing 3 ml of 0.5% Marcaine and 1 mL of Depo-Medrol 80 mg was injected. The needle was then removed. The patient tolerated the procedure well and there were no immediate complications. Less than 6 seconds seconds of fluoro time was utilized for this procedure. FINDINGS: None IMPRESSION: Fluoro guidance for right hip injection. <Electronically signed by Rigo Torrez > 02/20/21 [id number] <Electronically signed by Mike Jalloh > 02/20/21 1702
== END ==
LOC: M RADPRO 09:50
PROVIDERS: ATTEND Orthopaedic Surgery Adult Reconstructive Orthopaedic Surgery
DX: M16.30 Unilateral osteoarthritis resulting from hip dysplasia, unspecified hip (principal)
CPT/HCPCS: 20610; 77002; J1040; Q9967

== ENCOUNTER → 2021-10-03 | Outpatient (CLI) | payer OTHER ==
[~2021-10-03] MED LIST changes: -BUPIVACAINE HCL 0.5% 10ML VIAL As Ordered ONE; +BUPIVACAINE HCL 0.5% 30 ML VIAL As Ordered ONE; +LIDOCAINE 1% MDV 20ML VIAL As Ordered ONE
== END ==
LOC: M RADPRO 15:28
PROVIDERS: ATTEND Orthopaedic Surgery Adult Reconstructive Orthopaedic Surgery
DX: M16.31 Unilateral osteoarthritis resulting from hip dysplasia, right hip (principal)
CPT/HCPCS: 20610; 77002; J1040; Q9967

== ENCOUNTER → 2021-12-12 | Outpatient (CLI) | payer OTHER ==
[~2021-12-12] MED LIST changes: -BUPIVACAINE HCL 0.5% 30 ML VIAL As Ordered ONE; -ISOVUE-300 61% 50ML VIAL As Ordered ONE; -LIDOCAINE 1% MDV 20ML VIAL As Ordered ONE; -methylPREDNISolone 80MG/ML SUSP 1ML VIAL (J1040) As Ordered ONE
== END ==
LOC: M SOG 08:28
PROVIDERS: ATTEND Orthopaedic Surgery Adult Reconstructive Orthopaedic Surgery
DX: M16.31 Unilateral osteoarthritis resulting from hip dysplasia, right hip (principal)

== ENCOUNTER → 2022-01-27 | Outpatient (CLI) | payer OTHER ==
[2022-01-27 13:06] LABS: HEMATOCRIT 43.2 % (36.0-47.0); HEMOGLOBIN 14.2 g/dl (12.0-15.5); MEAN CORPUSCULAR HEMOGLOBIN 30.5 pg (27.0-33.0); MEAN CORPUSCULAR HGB CONC 32.9 g/dl (32.0-36.5); MEAN CORPUSCULAR VOLUME 92.7 fl (80.0-96.0); PLATELET COUNT, AUTOMATED 314 10^3/uL (150-450); RED BLOOD COUNT 4.66 10^6/uL (4.00-5.40); WHITE BLOOD COUNT 5.6 10^3/uL (4.0-10.0)
[2022-01-27 13:44] LABS: ALBUMIN 3.9 GM/DL (3.2-5.2); ALT/SGPT 24 U/L (12-78); BILIRUBIN,TOTAL 0.7 MG/DL (0.2-1.0); BLOOD UREA NITROGEN 15 MG/DL (7-18); CALCIUM LEVEL 9.4 MG/DL (8.5-10.1); CARBON DIOXIDE LEVEL 25 MEQ/L (21-32); CHLORIDE LEVEL 109 MEQ/L (98-107); CREATININE FOR GFR 0.89 MG/DL (0.55-1.30); GLOMERULAR FILTRATION RATE > 60.0 (>51); GLUCOSE, FASTING 106 MG/DL (70-100); MAGNESIUM LEVEL 2.3 MG/DL (1.8-2.4); POTASSIUM SERUM 4.2 MEQ/L (3.5-5.1); SODIUM LEVEL 141 MEQ/L (136-145); TOTAL PROTEIN 7.5 GM/DL (6.4-8.2)
== END ==
LOC: M WUC 09:42
PROVIDERS: ATTEND Physician Assistant
DX: I49.3 Ventricular premature depolarization (principal); R94.31 Abnormal electrocardiogram [ECG] [EKG]

== ENCOUNTER 2022-07-16 23:56 | Emergency (ER) | payer OTHER ==
[~2022-07-16] VITALS: Ht 170.2 cm; Wt 116.0 kg
[2022-07-16 23:57] VITALS: BP 181/81
[2022-07-17] MEDS ORDERED: MELO15TA28 PO (00:06)
== END 2022-07-17 00:58 | disposition left against medical advice (07) ==
LOC: M ED 23:56
DX: Z53.21 Procedure and treatment not carried out due to patient leaving prior to being seen by health care provider (principal)

== ENCOUNTER → 2022-07-17 | Outpatient (CLI) | payer OTHER ==
[~2022-07-17] MED LIST changes: +MELO15TA28 PO
== END ==
LOC: M PLAIMG 15:29
PROVIDERS: ATTEND Physician Assistant
DX: M25.519 Pain in unspecified shoulder (principal)

== ENCOUNTER → 2022-09-30 | Outpatient (REF) | LOC: M PLAIMG 12:04 | PROVIDERS: ATTEND Internal Medicine | DX: Z11.52 Encounter for screening for COVID-19 (principal) ==

== ENCOUNTER → 2023-01-04 | Outpatient (REF) | payer OTHER ==
[2023-01-04 17:28] LABS: BASO # 0.1 10^3/uL (0.0-0.2); BASO % 0.7 % (0.0-1.0); EOS # 0.1 10^3/uL (0.0-0.5); HEMOGLOBIN 13.8 g/dl (12.0-15.5); LYMPH # 1.9 10^3/uL (1.5-5.0); MEAN CORPUSCULAR HEMOGLOBIN 31.3 pg (27.0-33.0); MEAN CORPUSCULAR HGB CONC 33.7 g/dl (32.0-36.5); MONO # 0.5 10^3/uL (0.0-0.8); MONO % 6.8 % (2.0-8.0); NEUTROPHILS # 4.5 10^3/uL (1.5-8.5); NEUTROPHILS % 63.2 % (36.0-66.0); PLATELET COUNT, AUTOMATED 300 10^3/uL (150-450); RED BLOOD COUNT 4.41 10^6/uL (4.00-5.40); WHITE BLOOD COUNT 7.2 10^3/uL (4.0-10.0)
[2023-01-04 17:41] LABS: HEMOGLOBIN A1c 5.7 % (4.0-6.0)
[2023-01-04 17:50] LABS: THYROID STIMULATING HORMONE 1.431 uIU/ML (0.55-4.78)
[2023-01-04 17:53] LABS: ALBUMIN 3.8 G/DL (3.2-5.2); ALKALINE PHOSPHATASE 73 U/L (46-116); ALT/SGPT 27 U/L (7.0-40); AST/SGOT 23 U/L (<34); BILIRUBIN,TOTAL 0.9 MG/DL (0.3-1.2); BLOOD UREA NITROGEN 15 MG/DL (9-23); CALCIUM LEVEL 9.2 MG/DL (8.5-10.1); CARBON DIOXIDE LEVEL 27 MMOL/L (20-31); CHLORIDE LEVEL 108 MMOL/L (98-107); CHOLESTEROL LEVEL 168 MG/DL (<200); CHOLESTEROL RISK RATIO 3.61 (<5); CREATININE FOR GFR 0.85 MG/DL (0.55-1.30); GLOMERULAR FILTRATION RATE > 60.0 (>51); GLUCOSE, FASTING 94 MG/DL (60-100); HDL CHOLESTEROL 46.5 MG/DL (>40); LDL CHOLESTEROL 107.7 MG/DL (<100); NON-HDL-C 121.5 MG/DL; POTASSIUM SERUM 4.3 MMOL/L (3.5-5.1); SODIUM LEVEL 143 MMOL/L (136-145); TRIGLYCERIDES LEVEL 69 MG/DL (<150)
== END ==
LOC: M SFHCCLAY 09:22
PROVIDERS: ATTEND Nurse Practitioner Family
DX: E66.01 Morbid (severe) obesity due to excess calories (principal); M25.551 Pain in right hip; R73.03 Prediabetes; R00.2 Palpitations; F40.243 Fear of flying; G47.33 Obstructive sleep apnea (adult) (pediatric)

== ENCOUNTER → 2023-05-20 | Outpatient (CLI) | payer OTHER | LOC: M WUC 13:31 | PROVIDERS: ATTEND Student in an Organized Health Care Education/Training Program | DX: R05.9 Cough, unspecified (principal) ==

== ENCOUNTER 2023-06-07 18:11 | Emergency (ER) | payer OTHER ==
[~2023-06-07] VITALS: Ht 170.2 cm; Wt 116.6 kg
[2023-06-07] MEDS ORDERED: CORE3.12 PO (18:21)
[2023-06-07 20:09] LABS: VENOUS BASE EXCESS 0.5 (-2.0-2.0); VENOUS HCO3 24.1 MMOL/L (23.0-27.0); VENOUS O2 SATURATION 89.4 % (60.0-80.0); VENOUS PARTIAL PRESSURE CO2 36.2 mmHg (38.0-50.0); VENOUS PARTIAL PRESSURE O2 55.2 mmHg (30.0-50.0); VENOUS PH 7.442 UNITS (7.330-7.430); VENOUS STANDARD HCO3 24.7 MMOL/L; VENOUS TOTAL CO2 25.3 MMOL/L (24.0-28.0)
[2023-06-07 20:13] LABS: BASO % 0.4 % (0.0-1.0); EOS # 0.1 10^3/uL (0.0-0.5); EOS % 0.6 % (0.0-3.0); HEMATOCRIT 40.4 % (36.0-47.0); LYMPH # 0.8 10^3/uL (1.5-5.0); LYMPH % 9.3 % (24.0-44.0); MEAN CORPUSCULAR HEMOGLOBIN 31.3 pg (27.0-33.0); MEAN CORPUSCULAR HGB CONC 34.7 g/dl (32.0-36.5); MEAN CORPUSCULAR VOLUME 90.2 fl (80.0-96.0); MONO # 0.6 10^3/uL (0.0-0.8); MONO % 6.7 % (2.0-8.0); NEUTROPHILS % 82.8 % (36.0-66.0); PLATELET COUNT, AUTOMATED 302 10^3/uL (150-450); RED BLOOD COUNT 4.48 10^6/uL (4.00-5.40); WHITE BLOOD COUNT 8.5 10^3/uL (4.0-10.0)
[2023-06-07 22:00] LABS: ALBUMIN 3.7 G/DL (3.2-5.2); BILIRUBIN,DIRECT 0.2 MG/DL (<0.4); BILIRUBIN,TOTAL 0.7 MG/DL (0.3-1.2); THYROID STIMULATING HORMONE 0.798 uIU/ML (0.55-4.78); THYROXINE (T4) 7.8 UG/DL (4.5-10.9); TOTAL PROTEIN 6.8 G/DL (5.7-8.2)
[2023-06-07 22:17] VITALS: TEMP 98
[2023-06-07] MEDS ORDERED: CETIRIZINE (ZyrTEC) 10 MG TAB PO ONE (22:45)
[2023-06-07] MEDS ORDERED: BENZONATATE 100MG CAPSULE PO ONE (22:45)
[2023-06-07] MEDS: IPRATROPIUM 0.5MG/ALBUTEROL 2.5MG INH SOL UD 3ML (DUONEB) NEB PRN ×3 (23:04→23:12)
[2023-06-07] MEDS ORDERED: ISOVUE-370 76% 100ML VIAL As Ordered ONE (23:13)
[2023-06-07] MEDS ORDERED: NS 1,000 ML IV ONE (23:15)
[2023-06-08 01:01] LABS: VENOUS BASE EXCESS -1.1 (-2.0-2.0); VENOUS HCO3 24.2 MMOL/L (23.0-27.0); VENOUS PARTIAL PRESSURE CO2 42.6 mmHg (38.0-50.0); VENOUS PARTIAL PRESSURE O2 53.7 mmHg (30.0-50.0); VENOUS PH 7.372 UNITS (7.330-7.430); VENOUS STANDARD HCO3 23.3 MMOL/L; VENOUS TOTAL CO2 25.5 MMOL/L (24.0-28.0)
[2023-06-08] MEDS ORDERED: IPRA0.00 INH (01:24)
[2023-06-08] MEDS ORDERED: BENZ200C70 PO (01:24)
[2023-06-08] MEDS ORDERED: AZIT-10 PO (01:24)
[2023-06-08] MEDS ORDERED: PRED20TA PO (01:24)
[2023-06-08] MEDS ORDERED: AZITHROMYCIN 250MG TABLET PO ONE (01:25)
[2023-06-08 01:30] VITALS: BP 137/80; O2SAT 94
== END 2023-06-08 01:49 | disposition home or self-care (01) ==
LOC: M ED 18:11
DX: J98.4 Other disorders of lung (principal); R05.8 Other specified cough; R00.0 Tachycardia, unspecified; I10 Essential (primary) hypertension; K21.9 Gastro-esophageal reflux disease without esophagitis; G47.33 Obstructive sleep apnea (adult) (pediatric); Z79.899 Other long term (current) drug therapy
CPT/HCPCS: 71046; 71260; 80047; 80076; 82803; 83605; 83880; 84436; 84443; 84484; 85025; 87040; 87486; 87581; 87633; 87798; 93005; 93041; 94010; 94640; 94760; 99285; Q9967

== ENCOUNTER → 2023-06-25 | Outpatient (REF) | payer OTHER ==
[~2023-06-25] MED LIST changes: +AZIT-10 PO; +BENZ200C70 PO; +CORE3.12 PO; +IPRA0.00 INH; +PRED20TA PO
[2023-06-25 16:00] LABS: CALCIUM LEVEL 8.7 MG/DL (8.3-10.6); CREATININE FOR GFR 1.06 MG/DL (0.55-1.30); GLOMERULAR FILTRATION RATE 56.3 (>45); MAGNESIUM LEVEL 2.1 MG/DL (1.8-2.4)
== END ==
LOC: M LABWUC 15:16
PROVIDERS: ATTEND Physician Assistant
DX: I49.3 Ventricular premature depolarization (principal)

== ENCOUNTER → 2023-09-07 | Outpatient (REF) | payer OTHER ==
[2023-09-07 19:34] LABS: BASO % 0.4 % (0.0-1.0); EOS # 0.1 10^3/uL (0.0-0.5); EOS % 1.5 % (0.0-3.0); HEMOGLOBIN 13.7 g/dl (12.0-15.5); LYMPH # 2.4 10^3/uL (1.5-5.0); LYMPH % 26.5 % (24.0-44.0); MEAN CORPUSCULAR HEMOGLOBIN 30.8 pg (27.0-33.0); MEAN CORPUSCULAR HGB CONC 32.6 g/dl (32.0-36.5); MEAN CORPUSCULAR VOLUME 94.4 fl (80.0-96.0); MONO # 0.6 10^3/uL (0.0-0.8); MONO % 6.6 % (2.0-8.0); NEUTROPHILS # 5.8 10^3/uL (1.5-8.5); NEUTROPHILS % 64.7 % (36.0-66.0); PLATELET COUNT, AUTOMATED 321 10^3/uL (150-450); RED BLOOD COUNT 4.45 10^6/uL (4.00-5.40); WHITE BLOOD COUNT 8.9 10^3/uL (4.0-10.0)
[2023-09-07 19:59] LABS: TOTAL IRON BINDING CAPACITY 292 UG/DL (250-425)
[2023-09-07 20:00] LABS: ALBUMIN 3.8 G/DL (3.2-5.2); ALKALINE PHOSPHATASE 72 U/L (46-116); ALT/SGPT 22 U/L (7.0-40); AST/SGOT 22 U/L (<34); BILIRUBIN,TOTAL 0.6 MG/DL (0.3-1.2); BLOOD UREA NITROGEN 17 MG/DL (9-23); CALCIUM LEVEL 9.1 MG/DL (8.3-10.6); CARBON DIOXIDE LEVEL 27 MMOL/L (20-31); CHLORIDE LEVEL 110 MMOL/L (98-107); CREATININE FOR GFR 0.86 MG/DL (0.55-1.30); GLOMERULAR FILTRATION RATE > 60.0 (>45); GLUCOSE, FASTING 96 MG/DL (74-106); IRON (FE) 65 UG/DL (50-170); PERCENT SATURATION 22.3 % (13.2-45.0); POTASSIUM SERUM 4.2 MMOL/L (3.5-5.1); SODIUM LEVEL 143 MMOL/L (136-145); TOTAL PROTEIN 6.8 G/DL (5.7-8.2)
[2023-09-07 20:02] LABS: FREE T4 1.05 NG/DL (0.89-1.76); THYROID STIMULATING HORMONE 0.885 uIU/ML (0.55-4.78); TOTAL 25(OH) VITAMIN D 36.1 NG/ML (20.0-100.0)
== END ==
LOC: M SFHCCLAY 14:17
PROVIDERS: ATTEND Nurse Practitioner Family
DX: G47.33 Obstructive sleep apnea (adult) (pediatric) (principal); M25.551 Pain in right hip; R53.83 Other fatigue
CPT/HCPCS: 80053; 82306; 83550; 84439; 84443; 85025; G0463

== ENCOUNTER → 2023-09-13 | Outpatient (CLI) | payer OTHER ==
[2023-09-13 12:07] LABS: RHEUMATOID FACTOR QUANT < 3.5 IU/ML (<14)
[2023-09-13 12:08] LABS: URIC ACID 6.4 MG/DL (3.1-7.8)
[2023-09-14 23:07] LABS: ANA (HEP2) Negative (.); CYCLIC CITRULLINATED PEPTIDE 8 units (0-19); IgG P18 AB Absent (.); IgG P23 AB Absent (.); IgG P28 AB Absent (.); IgG P30 AB Absent (.); IgG P39 AB Absent (.); IgG P41 AB Present (.); IgG P45 AB Absent (.); IgG P66 AB Absent (.); IgG P93 AB Absent (.); IgM P23 AB Absent (.); IgM P39 AB Absent (.); IgM P41 AB Absent (.); LYME IgG WB INTERPRETATION Negative (.); LYME IgM WB INTERPRETATION Negative (.); SSA SJOGRENS A <0.2 AI (0.0-0.9); SSB SJOGRENS B <0.2 AI (0.0-0.9)
== END ==
LOC: M LAB 10:50
PROVIDERS: ATTEND Nurse Practitioner Family
DX: M25.50 Pain in unspecified joint (principal)

== ENCOUNTER → 2024-04-21 | Outpatient (CLI) | payer OTHER, MEDICARE ==
[2024-04-21 17:55] LABS: BASO # 0.1 10^3/uL (0.0-0.2); BASO % 0.8 % (0.0-1.0); EOS # 0.1 10^3/uL (0.0-0.5); EOS % 1.1 % (0.0-3.0); HEMATOCRIT 37.8 % (36.0-47.0); HEMOGLOBIN 12.4 g/dl (12.0-15.5); LYMPH # 3.4 10^3/uL (1.5-5.0); LYMPH % 46.9 % (24.0-44.0); MEAN CORPUSCULAR HEMOGLOBIN 30.6 pg (27.0-33.0); MEAN CORPUSCULAR HGB CONC 32.8 g/dl (32.0-36.5); MEAN CORPUSCULAR VOLUME 93.3 fl (80.0-96.0); MONO # 0.7 10^3/uL (0.0-0.8); MONO % 9.6 % (2.0-8.0); NEUTROPHILS % 41.5 % (36.0-66.0); PLATELET COUNT, AUTOMATED 304 10^3/uL (150-450); RED BLOOD COUNT 4.05 10^6/uL (4.00-5.40); WHITE BLOOD COUNT 7.3 10^3/uL (4.0-10.0)
[2024-04-21 18:04] LABS: ALBUMIN 3.8 G/DL (3.2-5.2)
[2024-04-21 18:11] LABS: PERCENT SATURATION 25.6 % (13.2-45.0)
[2024-04-21 18:18] LABS: FERRITIN 339.6 NG/ML (7.3-270.7)
== END ==
LOC: M WUC 14:24
PROVIDERS: ATTEND Orthopaedic Surgery
DX: M25.551 Pain in right hip (principal)

== ENCOUNTER → 2024-06-09 | Outpatient (CLI) | payer OTHER, MEDICARE ==
[2024-06-09 12:53] LABS: ALBUMIN 3.8 G/DL (3.2-5.2); ALKALINE PHOSPHATASE 81 U/L (35-104); ALT/SGPT 25 U/L (7.0-40); AST/SGOT 17 U/L (<34); BLOOD UREA NITROGEN 19 MG/DL (9-23); CALCIUM LEVEL 9.5 MG/DL (8.3-10.6); CARBON DIOXIDE LEVEL 30 MMOL/L (20-31); CHLORIDE LEVEL 110 MMOL/L (98-107); CHOLESTEROL LEVEL 203 MG/DL (<200); CHOLESTEROL RISK RATIO 4.58 (<5); CREATININE FOR GFR 0.86 MG/DL (0.55-1.30); GLOMERULAR FILTRATION RATE > 60.0 (>45); GLUCOSE, FASTING 94 MG/DL (74-106); HDL CHOLESTEROL 44.3 MG/DL (>40); LDL CHOLESTEROL 143.5 MG/DL (<100); MAGNESIUM LEVEL 2.2 MG/DL (1.8-2.4); NON-HDL-C 158.7 MG/DL; POTASSIUM SERUM 4.7 MMOL/L (3.5-5.1); SODIUM LEVEL 144 MMOL/L (136-145); TOTAL PROTEIN 7.3 G/DL (5.7-8.2); TRIGLYCERIDES LEVEL 76 MG/DL (<150)
== END ==
LOC: M PLALAB 09:27
PROVIDERS: ATTEND Physician Assistant
DX: I49.3 Ventricular premature depolarization (principal); Z13.220 Encounter for screening for lipoid disorders

== ENCOUNTER → 2024-06-09 | Outpatient (CLI) | payer OTHER, MEDICARE ==
[2024-06-09 12:18] LABS: BASO % 0.3 % (0.0-1.0); EOS # 0.2 10^3/uL (0.0-0.5); HEMATOCRIT 41.1 % (36.0-47.0); HEMOGLOBIN 13.7 g/dl (12.0-15.5); LYMPH # 2.6 10^3/uL (1.5-5.0); LYMPH % 33.6 % (24.0-44.0); MEAN CORPUSCULAR HEMOGLOBIN 31.2 pg (27.0-33.0); MEAN CORPUSCULAR HGB CONC 33.3 g/dl (32.0-36.5); MEAN CORPUSCULAR VOLUME 93.6 fl (80.0-96.0); MONO # 0.6 10^3/uL (0.0-0.8); MONO % 8.2 % (2.0-8.0); NEUTROPHILS # 4.3 10^3/uL (1.5-8.5); NEUTROPHILS % 55.5 % (36.0-66.0); PLATELET COUNT, AUTOMATED 257 10^3/uL (150-450); RED BLOOD COUNT 4.39 10^6/uL (4.00-5.40); WHITE BLOOD COUNT 7.7 10^3/uL (4.0-10.0)
[2024-06-09 12:30] LABS: INR 0.99; PARTIAL THROMBOPLASTIN TIME 26.9 SECONDS (24.8-34.2); PROTHROMBIN TIME 13.4 SECONDS (12.5-14.5)
[2024-06-09 12:53] LABS: ALBUMIN 3.7 G/DL (3.2-5.2); ALKALINE PHOSPHATASE 81 U/L (35-104); ALT/SGPT 24 U/L (7.0-40); AST/SGOT 17 U/L (<34); BILIRUBIN,TOTAL 1.1 MG/DL (0.3-1.2); BLOOD UREA NITROGEN 19 MG/DL (9-23); CALCIUM LEVEL 9.7 MG/DL (8.3-10.6); CARBON DIOXIDE LEVEL 31 MMOL/L (20-31); CHLORIDE LEVEL 109 MMOL/L (98-107); CREATININE FOR GFR 0.87 MG/DL (0.55-1.30); GLOMERULAR FILTRATION RATE > 60.0 (>45); GLUCOSE, FASTING 93 MG/DL (74-106); SODIUM LEVEL 142 MMOL/L (136-145); TOTAL PROTEIN 7.1 G/DL (5.7-8.2)
== END ==
LOC: M PLALAB 09:25
PROVIDERS: ATTEND Family Medicine
DX: Z01.810 Encounter for preprocedural cardiovascular examination (principal)

== ENCOUNTER → 2025-02-27 | Outpatient (CLI) | payer OTHER, MEDICARE | LOC: M RAD 09:37 | PROVIDERS: ATTEND Family Medicine | DX: M79.89 Other specified soft tissue disorders (principal) ==

== ENCOUNTER → 2025-03-20 | Outpatient (CLI) | payer OTHER, MEDICARE | LOC: M LAB 14:06 | PROVIDERS: ATTEND Family Medicine | DX: L65.9 Nonscarring hair loss, unspecified (principal) ==

== ENCOUNTER → 2025-03-22 | Outpatient (CLI) | payer OTHER, MEDICARE ==
[~2025-03-22] MED LIST changes: +OMEGA-3 1000 MG CAPSULE ONE; +PROHANCE 279.3MG/ML 15ML VIAL ONE; +PROHANCE 279.3MG/ML 5ML VIAL ONE
== END ==
LOC: M PLAIMG 07:36
PROVIDERS: ATTEND Family Medicine
DX: M79.89 Other specified soft tissue disorders (principal)
CPT/HCPCS: 73720; A9576

== ENCOUNTER → 2025-05-22 | Outpatient (REF) | payer MEDICARE, OTHER ==
[~2025-05-22] MED LIST changes: -OMEGA-3 1000 MG CAPSULE ONE; -PROHANCE 279.3MG/ML 15ML VIAL ONE; -PROHANCE 279.3MG/ML 5ML VIAL ONE
[2025-05-24 15:17] LABS: HPV APTIMA Not Detected (Not Detected)
== END ==
LOC: M SFHCPLAZ 18:03
PROVIDERS: ATTEND Family Medicine
DX: Z12.4 Encounter for screening for malignant neoplasm of cervix (principal)

== ENCOUNTER → 2025-07-02 | Outpatient (CLI) | payer OTHER ==
[2025-07-02 13:20] LABS: CREATININE, URINE 134.0 MG/DL; MALB URINE SIEMENS < 3.0 MG/L
[2025-07-02 13:22] LABS: ALT/SGPT 20.0 U/L (7.0-40); AST/SGOT 22.0 U/L (<34); CALCIUM LEVEL 9.1 MG/DL (8.3-10.6); CARBON DIOXIDE LEVEL 26.0 MMOL/L (20-31); CHLORIDE LEVEL 105.0 MMOL/L (98-107); CHOLESTEROL LEVEL 177.0 MG/DL (<200); CHOLESTEROL RISK RATIO 3.89 (<5); CREATININE FOR GFR 0.81 MG/DL (0.55-1.30); GLOMERULAR FILTRATION RATE 82.0 (>45); LDL CHOLESTEROL 117.5 MG/DL (<100); NON-HDL-C 131.5 MG/DL; POTASSIUM SERUM 4.1 MMOL/L (3.5-5.1); SODIUM LEVEL 140.0 MMOL/L (136-145); TRIGLYCERIDES LEVEL 70.0 MG/DL (<150)
[2025-07-02 13:24] LABS: TOTAL 25(OH) VITAMIN D 56.6 NG/ML (20.0-100.0)
[2025-07-02 13:33] LABS: PLATELET COUNT, AUTOMATED 291 10^3/uL (150-450)
[2025-07-02 13:39] LABS: ESTIMATED AVERAGE GLUCOSE 114.0 MG/DL (60-110)
== END ==
LOC: M WUC 10:20
PROVIDERS: ATTEND Family Medicine
DX: M16.0 Bilateral primary osteoarthritis of hip (principal); E66.812 Obesity, class 2; L65.9 Nonscarring hair loss, unspecified; I10 Essential (primary) hypertension; Z68.37 Body mass index [BMI] 37.0-37.9, adult